=== PATIENT | female | born 1930 ===

== ENCOUNTER → 2017-04-03 | Emergency (ER) | payer OTHER ==
[~2017-04-03] VITALS: Ht 152.4 cm; Wt 78.0 kg
== END | disposition home or self-care (01) ==
LOC: ER 11:23
DX: K52.9 Noninfective gastroenteritis and colitis, unspecified (principal)

== ENCOUNTER 2019-04-12 16:01 | Emergency (ER) | payer OTHER ==
[~2019-04-12] VITALS: Ht 149.9 cm; Wt 53.5 kg
== END 2019-04-12 18:08 | disposition home or self-care (01) ==
LOC: ER 16:01
DX: S40.011A Contusion of right shoulder, initial encounter (principal); M12.511 Traumatic arthropathy, right shoulder; W18.09XA Striking against other object with subsequent fall, initial encounter; Y93.89 Activity, other specified; Y92.015 Private garage of single-family (private) house as the place of occurrence of the external cause; Y99.8 Other external cause status

== ENCOUNTER 2020-01-28 16:38 | Inpatient (IN) | payer OTHER ==
[~2020-01-28] VITALS: Ht 152.4 cm; Wt 45.4 kg
[2020-01-28] MEDS ORDERED: ARICEPT10 MG PO (16:49)
[2020-01-28] MEDS ORDERED: ATORVASTATIN CA20 MG PO (16:49)
--- NOTE | 2020-01-28 16:50 | NUR ---
SE RECIBE PACIENTE ALERTA, ACOMPANADA DE CUIDADOR, PACIENTE REFIERE NO SABE PORQUE LA TRAEN , CUIDADOR REFIERE QUE NO QUIERE COMER Y LA CONCHA PARA IRA QUE NO JERO DESIDRATADA. SE UBICA EN AREA DE ESPERA PARA EVALUACION MEDICA.
--- NOTE | 2020-01-28 18:13 | NUR ---
FEMINA DE 89 ANOS,ALERTA,ORIENTADA EN LAPSOS, EN COPMPANIA DE FAMILIAR. ES EVALUADA POR MD EN TURNO QUIEN ORIENTA A FAMILIAR SOBRE TRATAMIENTO A SEGUIR, COLOCA ORDEN MEDICA. GFAMILIAR REFIERE COMPRENDER. SE RE ORIENTA SOBRE ORDEN MEDICA. SE EXTRAEN MUESTRAS DE SANGRES, SE REALIZA PRUEBA DE INFLUENZA, SE ROTULAN Y ENVIAN PARA ANALISIS. SE COLOCA H/L BAJO MEDIDAS ASEPTICAS EN BRAZO LT CON ANGIO #18. SE ADMINISTRA IVF'S 0.9%NSS 1,000 + MV 10ML AT 150ML, PACIENTE NO PRESENTA REACCION ADVERSA AL MOMENTO. SE NOTIFICA ESTUDIO XRAYS A PERSONAL EN TURNO. SE UBICA PACIENTE EN ANUP #07 POR ORDEN MEDICA. PACIENTE ESTABLE DENTRO DE CONDICION DE ADY.
--- NOTE | 2020-01-28 23:10 | NUR ---
SE RECIBE FEMINA ALERTA Y DESORIENTADA POR CLARE ESFERAS, EN ANUP CON BARANDAS ELEVADAS Y SEGURAS. AREA DE VENOPUNCION BOSSMAN DE EDEMA O ENROJECIMIENTO. RECIBIENDO IVF ORDENADO. 0100-PACIENTE SE MUESTRA AGRESIVA SE REMUEVE VENOPUNCION DE MANO DERECHA. SE RE-CANALIZA EN BRAZO ERIC. SE MARY MUESTRAS DE NESTOR ORDENADAS POR DR. POWERS. SE RESTRINGE PACIENTE EN EXTREMIDADES SUPERIORES. SE PROVEE CAMBIO DE PANAL. SE INTENTA LOCALIZAR CUIDADOR Y NO CONTESTA.
--- NOTE | 2020-01-29 05:50 | NUR ---
POR SEGUNDA OCASION SE LE ROSIE CAMBIO DE CAMA Y "BLUE PADS",PTE ORINADA.CONITNUA RESTRINGIDA X2 SUPERIOR,CONTINUA DESORIENTADA X 3 E INTRANQUILA.
--- NOTE | 2020-01-29 07:19 | NUR ---
SE REICBE PTE FEMENINA DE 89 YRS HARRIS CONCIENTE Y DESORIENTADA, SE OBSERVA ARTERADA Y SE ENCUENTRA FERNANDO AL MOMENTO/ PTE CON RESTRICIONES EN EXTREMIDADES SUPERIORES. SE OBSERVA EN BUENAS CONDICIONES EL AREA DE LA S RESTRICIONES. PTE SE MANTIENE CON IVF'S PATENE Y BOSSMAN DE EDEMA.SE MANTIENE BAJO OBSERVACION.
[2020-02-07] MEDS ORDERED: INTEGRA PLUS C1 EACH PO (11:49)
[2020-02-07] MEDS ORDERED: CYANOCOBAL1000 MCG/1 IM (11:49)
[2020-02-07] MEDS ORDERED: RISPERDAL0.5 MG PO (11:49)
[2020-02-07] MEDS ORDERED: RESTORIL15 MG PO (11:49)
[2020-02-07] MEDS ORDERED: B Complex CAPSULE PO (11:49)
[2020-02-07] MEDS ORDERED: AMLODIPINE BESYL5 MG PO (11:49)
[2020-02-07] MEDS ORDERED: ARICEPT10 MG PO (11:49)
[2020-02-07] MEDS ORDERED: CIPRO500 MG PO (11:49)
== END 2020-02-07 13:01 | disposition home or self-care (01) | DRG 866 ==
LOC: ER 16:38 → MEDI 01-29 10:22 → SEC-K 01-29 12:36 → MEDI 01-29 22:39
PROVIDERS: ADMIT Internal Medicine; ATTEND Internal Medicine
PROC: B246ZZZ Ultrasonography of Right and Left Heart (ICD-10-PCS; principal; 2020-01-29)
PROC: 4A1HXCZ Monitoring of Products of Conception, Cardiac Rate, External Approach (ICD-10-PCS; 2020-01-30)
PROC: 0HQ1XZZ Repair Face Skin, External Approach (ICD-10-PCS; 2020-01-31)
PROC: BW40ZZZ Ultrasonography of Abdomen (ICD-10-PCS; 2020-02-02)
DX: A90 Dengue fever [classical dengue] (principal); M62.82 Rhabdomyolysis; N39.0 Urinary tract infection, site not specified; D69.49 Other primary thrombocytopenia; E86.0 Dehydration; E87.5 Hyperkalemia; Z20.828 Contact with and (suspected) exposure to other viral communicable diseases; G30.8 Other Alzheimer's disease; F02.80 Dementia in other diseases classified elsewhere, unspecified severity, without behavioral disturbance, psychotic disturbance, mood disturbance, and anxiety; E78.5 Hyperlipidemia, unspecified; S01.121A Laceration with foreign body of right eyelid and periocular area, initial encounter; W06.XXXA Fall from bed, initial encounter; Y93.89 Activity, other specified; Y92.230 Patient room in hospital as the place of occurrence of the external cause; Y99.8 Other external cause status; B96.89 Other specified bacterial agents as the cause of diseases classified elsewhere; S06.0X0A Concussion without loss of consciousness, initial encounter